=== PATIENT | female | born 1945 | race Caucasian/White ===

== ENCOUNTER 2016-08-08 08:44 | Outpatient (CLI) | payer MEDICARE, OTHER | END 2016-08-08 08:45 | disposition home or self-care (01) | DX: E78.5 Hyperlipidemia, unspecified (principal); E55.9 Vitamin D deficiency, unspecified; Z79.899 Other long term (current) drug therapy; I10 Essential (primary) hypertension ==

== ENCOUNTER 2017-05-13 13:03 | Outpatient (CLI) | payer MEDICARE, OTHER ==
--- NOTE | 2017-05-13 17:05 | MRI Report ---
EXAM: RIGHT KNEE MRI WITHOUT CONTRAST EXAM DATE: 05/13/2017 01:44 PM. CLINICAL HISTORY: Right knee injury 8 months ago. History of breast cancer. Suspect medial meniscal t ear. COMPARISON: None. TECHNIQUE: Multiplanar, multisequence T1-weighted and fluid-sensitive sequences of the knee without c ontrast. Other: None. FINDINGS: Bones: Tiny marginal osteophytes at the tibial plateau. No acute fracture or bone lesions. Articular Cartilage: Grade 2 chondromalacia at the medial compartment. Medial Meniscus: Horizontal tear at the medial meniscal body (coronal image 17). Lateral Meniscus: Radial tear at the free edge of the lateral meniscal body Cruciate Ligaments: The anterior and posterior cruciate ligaments are intact. Collateral Ligaments: The medial collateral and lateral collateral ligamentous structures are intact. Tendons: The quadriceps, patellar, semimembranosus, and popliteus tendons are unremarkable. Musculature: No edema or fatty atrophy. Other: No effusion. There is a moderate-sized, approximately 7.8 x 2.2 x 1.2 cm lobular and multisept ated popliteal cyst. No loose bodies. The medial and lateral retinacula are intact. The subcutaneous tissues and fat pads are unremarkable. IMPRESSION: 1. 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 2. Focal horizontal tear at the medial meniscal body. 3. Radial tear at the free edge of the lateral meniscal body. 4. Moderate-sized lobular and multiseptated popliteal cyst. [facility] MUSCULOSKELETAL RADIOLOGY SECTION Referring Provider Line: [phone] SITE ID: [id number]
== END 2017-05-13 13:04 | disposition home or self-care (01) ==
LOC: DI 13:03
PROVIDERS: ATTEND Physician Assistant Medical
DX: S83.241A Other tear of medial meniscus, current injury, right knee, initial encounter (principal); M94.261 Chondromalacia, right knee; S83.281A Other tear of lateral meniscus, current injury, right knee, initial encounter; M71.21 Synovial cyst of popliteal space [Baker], right knee

== ENCOUNTER 2017-09-03 11:05 | Outpatient (CLI) | payer MEDICARE, BC ==
[2017-09-03 17:26] LABS: BASOPHILS % (AUTO) 0.4 %; EOSINOPHILS # (AUTO) 0.1 10^3/uL (0.0-0.7); EOSINOPHILS % (AUTO) 1.5 %; HGB - HEMOGLOBIN 14.4 g/dL (12.0-16.0); LYMPHOCYTES # (AUTO) 2.1 10^3/uL (1.5-3.5); LYMPHOCYTES % (AUTO) 31.8 %; MEAN CORPUSCULAR HEMOGLOBIN 29.1 pg (27.0-31.0); MEAN CORPUSCULAR HGB CONC 31.9 g/dL (32.0-36.0); MEAN CORPUSCULAR VOLUME 91.2 fL (81.0-99.0); MEAN PLATELET VOLUME 8.6 fL (7.9-10.8); MONOCYTES # (AUTO) 0.4 10^3/uL (0.0-1.0); MONOCYTES % (AUTO) 6.1 %; NEUTROPHILS % (AUTO) 60.2 %; PLT - PLATELET COUNT 255 10^3/uL (130-450); RED BLOOD COUNT 4.94 10^6/uL (4.20-5.40); RED CELL DISTRIBUTION WIDTH 13.5 % (12.0-15.0); WHITE BLOOD COUNT 6.6 x10^3/uL (4.8-10.8)
[2017-09-03 17:37] LABS: ALBUMIN 3.9 g/dL (3.2-5.5); ALBUMIN/GLOBULIN RATIO 1.3 (1.0-2.2); ALKALINE PHOSPHATASE 35 IU/L (42-121); ALT ALANINE AMINOTRANSFERASE 30 IU/L (10-60); AST ASPARTATE AMINOTRANSFERASE 30 IU/L (10-42); BILIRUBIN,TOTAL 0.7 mg/dL (0.2-1.0); BUN - BLOOD UREA NITROGEN 15 mg/dL (6-20); CALCIUM 9.4 mg/dL (8.5-10.3); CARBON DIOXIDE - CO2 29 mmol/L (21-32); CHLORIDE 100 mmol/L (101-111); CHOL/HDL RATIO 2.9 (<4.4); CHOLESTEROL 152 mg/dL; CREATININE 0.7 mg/dL (0.4-1.0); GFR - MDRD 82 (>89); GLUCOSE 88 mg/dL (70-100); HDL CHOLESTEROL 52 mg/dL; LDL CHOLESTEROL,CALCULATED 82 mg/dL; LDL/HDL RATIO 1.6 (<4.4); SODIUM 136 mmol/L (135-145); TOTAL PROTEIN 6.9 g/dL (6.7-8.2); VLDL CHOLESTEROL 18 mg/dL
== END 2017-09-03 11:06 | disposition home or self-care (01) ==
LOC: LAB.F 11:05
PROVIDERS: ATTEND Physician Assistant Medical
DX: I10 Essential (primary) hypertension (principal); E55.9 Vitamin D deficiency, unspecified; E78.5 Hyperlipidemia, unspecified
CPT/HCPCS: 36415; 80053; 80061; 82306; 83721; 85025

== ENCOUNTER 2018-02-13 15:23 | Outpatient (CLI) | payer MEDICARE, BC ==
[2018-02-13 17:43] LABS: BASOPHILS % (AUTO) 0.3 %; EOSINOPHILS # (AUTO) 0.1 10^3/uL (0.0-0.7); EOSINOPHILS % (AUTO) 0.8 %; HGB - HEMOGLOBIN 14.1 g/dL (12.0-16.0); LYMPHOCYTES # (AUTO) 2.7 10^3/uL (1.5-3.5); LYMPHOCYTES % (AUTO) 29.8 %; MEAN CORPUSCULAR HEMOGLOBIN 30.9 pg (27.0-31.0); MEAN CORPUSCULAR HGB CONC 33.9 g/dL (32.0-36.0); MEAN CORPUSCULAR VOLUME 91.1 fL (81.0-99.0); MEAN PLATELET VOLUME 8.8 fL (7.9-10.8); MONOCYTES # (AUTO) 0.7 10^3/uL (0.0-1.0); MONOCYTES % (AUTO) 7.2 %; NEUTROPHILS # (AUTO) 5.6 10^3/uL (1.5-6.6); NEUTROPHILS % (AUTO) 61.9 %; PLT - PLATELET COUNT 220 10^3/uL (130-450); RED BLOOD COUNT 4.58 10^6/uL (4.20-5.40); RED CELL DISTRIBUTION WIDTH 13.2 % (12.0-15.0); WHITE BLOOD COUNT 9.1 x10^3/uL (4.8-10.8)
== END 2018-02-13 15:24 | disposition home or self-care (01) ==
LOC: LAB.F 15:23
PROVIDERS: ATTEND Physician Assistant Medical
DX: I10 Essential (primary) hypertension (principal); R53.83 Other fatigue
CPT/HCPCS: 36415; 84443; 85025

== ENCOUNTER 2018-08-04 11:45 | Outpatient (CLI) | payer MEDICARE, BC ==
[2018-08-04 20:17] LABS: URIC ACID 4.8 mg/dL (2.6-7.2)
[2018-08-04 20:38] LABS: CRP - C-REACTIVE PROTEIN < 1.0 mg/dL (0-1.0)
[2018-08-04 21:45] LABS: RHEUMATOID FACTOR NEGATIVE (Negative)
== END 2018-08-04 11:46 | disposition home or self-care (01) ==
LOC: LAB.F 11:45
PROVIDERS: ATTEND Physician Assistant Medical
DX: M25.50 Pain in unspecified joint (principal)
CPT/HCPCS: 36415; 84550; 85651; 86038; 86140; 86200; 86430

== ENCOUNTER 2019-04-12 10:02 | Outpatient (CLI) | payer MEDICARE, BC | END 2019-04-12 10:03 | disposition critical access hospital (66) | LOC: EMS 10:02 | PROVIDERS: ATTEND Surgery | DX: R10.9 Unspecified abdominal pain (principal); W01.190A Fall on same level from slipping, tripping and stumbling with subsequent striking against furniture, initial encounter | CPT/HCPCS: A0425; A0429 ==

== ENCOUNTER 2019-04-12 10:30 | Emergency (ER) | payer MEDICARE, BC ==
--- NOTE | 2019-04-12 11:38 | XRAY Report ---
Reason: fall/rib pain Procedure Date: 04/12/2019 Accession Number: [id number] / [id number] Procedure: XR - Ribs w/PA Chest RT CPT Code: Addended Final Report FULL RESULT: EXAM: RIGHT RIB RADIOGRAPHY EXAM DATE: 04/12/2019 10:57 AM. CLINICAL HISTORY: Fall/rib pain. COMPARISON: None. TECHNIQUE: 1 view of the chest and 2 views of the ribs. FINDINGS: Bones: Normal. No acute fracture or bone lesion. Lungs: No focal opacities. No pneumothorax. No pleural effusions. Mediastinum: Heart and mediastinal contours are unremarkable. Other: About 6.7 degrees of levoscoliosis from T2-T3 to T9-T10. IMPRESSION: 1. No evidence for rib fractures or other acute bony injuries. 2. Heart and lungs are clear. 3. Minimal levoscoliosis. [facility] ADDENDUM: 04/12/19 12:20 Examination shows a nondisplaced rib fracture at the lateral eighth rib. Best seen on the oblique images.
--- NOTE | 2019-04-12 11:42 | ED Physician Documentation ---
PD HPI Fall - Stated complaint Stated Complaint: FALL - Chief complaint Chief Complaint: Back Pain - History obtained from History obtained from: Patient - History of Present Illness Mechanism of injury: Slipped (On a piece of bubble wrap) Fall distance: Standing position Where injury occurred: Home Timing - onset: Yesterday Injury(ies) location: Chest Quality of pain: Pain Associated symptoms: No: LOC, Neck pain, Nausea / vomiting Worsens with: Movement Recently seen: Not recently seen - Additional information Additional information: This is a 73-year-old woman who presents by ambulance with complaints that you walking through her living room last night slipped on a piece of bubble wrap and fell impacting onto the couch on her right chest. She took some Aleve last night but the pain is getting worse. She feels short of breath. She has not noticed any bruising. She has not seen blood in the urine. She felt a little dizzy but has not passed out. Had no vomiting. No abdominal pain. Review of Systems Cardiac: reports: Chest pain / pressure Respiratory: reports: Dyspnea : denies: Hematuria PD PAST MEDICAL HISTORY - Present Medications Home Medications: Ambulatory Orders Medication Instructions Recorded Confirmed Hydrocodone/Acetaminophen 1 - 2 each PO Q6H PRN #14 tablet 04/12/19 [Hydrocodon-Acetaminophen 5-325] - Allergies Allergies/Adverse Reactions: Allergies Allergy/AdvReac Type Severity Reaction Status Date / Time No Known Drug Allergies Allergy Verified 04/12/19 10:37 - Social History Does the pt smoke?: No Smoking Status: Never smoker PD ED PE NORMAL - Vitals Vital signs reviewed: Yes - General General: Alert and oriented X 3, No acute distress, Well developed/nourished - HEENT HEENT: Atraumatic, Moist mucous membranes - Cardiac Cardiac: RRR, Strong equal pulses - Respiratory Respiratory: No respiratory distress, Clear bilaterally, Other (There was a palpable and audible crunching when the patient took a deep breath. No crepitance or crepitus.) - Abdomen Abdomen: Normal bowel sounds, Soft, Non tender, Non distended, No organomegaly - Derm Derm: Normal color, Warm and dry, Other (No bruising noted.) - Extremities Extremities: No deformity - Neuro Neuro: Alert and oriented X 3, No motor deficit, No sensory deficit, Normal speech - Psych Psych: Normal mood, Normal affect Results - Vitals Vitals: Vital Signs - 24 hr 04/12/19 10:34 Temperature 36.4 C L Heart Rate 64 Respiratory 18 Rate Blood Pressure 142/100 H O2 Saturation 100 Oxygen O2 Source Room air - Rads (name of study) Rib Radiology: EMP read contemporaneously (Fracture rib 8) PD MEDICAL DECISION MAKING - ED course Complexity details: reviewed results, d/w patient ED course: Patient was given hydrocodone tablet. Results the x-ray were discussed with her. No evidence of pneumothorax. There was no gross hematuria. Patient will be given a prescription for hydrocodone. We talked about rib precautions and splinting to help alleviate the pain. I did also recommend taking Aleve twice a day and using the hydrocodone only if needed. Follow-up with her primary care provider if needed for further pain management. Return if any signs of pneumonia to include shortness of breath, fever, increasing pain. Departure - Departure Disposition: 01 Home, Self Care Clinical Impression: Rib fracture Qualifiers: Encounter type: initial encounter Rib fracture type: single rib Fracture type: closed Laterality: right Qualified Code(s): S22.31XA - Fracture of one rib, right side, initial encounter for closed fracture Condition: Good Instructions: ED Fx Rib Follow-Up: Jannette Diaz PA-C [Primary Care Provider] - Prescriptions: Hydrocodone/Acetaminophen [Hydrocodon-Acetaminophen 5-325] 1 - 2 each PO Q6H PRN #14 tablet PRN Reason: pain Comments: Take Aleve twice a day. Trial just a half a tablet of hydrocodone if needed for pain. He can always take an additional half if there is no improvement in 30 minutes. Splint the chest if you have to move abruptly cough or laugh or sneeze. Make sure that you are taking and good deep breaths to avoid development of pneumonia. Follow-up if you have increasing pain, fever, productive cough or shortness of breath. See your doctor for further pain management if needed.
[2019-04-12] MEDS ORDERED: HYDROcod/ACETAM 5/325 MG TABLET PO STA (11:43)
[2019-04-12 12:53] VITALS: BP 122/85
[2019-04-12 12:56] LABS: BILIRUBIN,URINE NEGATIVE (NEGATIVE); GLUCOSE, URINE (UA) NEGATIVE (NEGATIVE); KETONES,URINE (UA) NEGATIVE (NEGATIVE); LEUKOCYTE ESTERASE, URINE NEGATIVE (NEGATIVE); NITRITE,URINE NEGATIVE (NEGATIVE); OCCULT BLOOD,URINE NEGATIVE (NEGATIVE); PH,URINE 7.5 PH (5.0-7.5); PROTEIN,URINE NEGATIVE (NEGATIVE); UROBILINOGEN,URINE 0.2 (NORMAL) E.U./dL (NORMAL)
[2019-04-12 12:57] LABS: CLARITY,URINE CLEAR (CLEAR)
== END 2019-04-12 13:06 | disposition home or self-care (01) ==
LOC: EDUNIT# → ED 10:30
DX: S22.31XA Fracture of one rib, right side, initial encounter for closed fracture (principal); W01.190A Fall on same level from slipping, tripping and stumbling with subsequent striking against furniture, initial encounter; Y93.01 Activity, walking, marching and hiking; Y92.008 Other place in unspecified non-institutional (private) residence as the place of occurrence of the external cause
CPT/HCPCS: 71101; 81003; 99283; 99284; A9270; 81001; 87086

== ENCOUNTER 2019-06-12 08:00 | Outpatient (CLI) | payer MEDICARE, BC | END 2019-06-12 23:59 | disposition home or self-care (01) | LOC: LAB.R 08:00 | PROVIDERS: ATTEND Family Medicine | DX: R39.15 Urgency of urination (principal) | CPT/HCPCS: 87077; 87086; 87181 ==

== ENCOUNTER 2019-07-02 12:28 | Outpatient (CLI) | payer MEDICARE, BC ==
--- NOTE | 2019-07-03 03:53 | XRAY Report ---
Reason: FRACTURE OF ONE RIB RIGHT SIDE Procedure Date: 07/02/2019 Accession Number: [id number] / [id number] Procedure: XRS - Ribs w/PA Chest RT CPT Code: Final Report FULL RESULT: EXAM: RIGHT RIB RADIOGRAPHY EXAM DATE: 07/02/2019 01:30 PM. CLINICAL HISTORY: FRACTURE OF ONE RIB RIGHT SIDE. COMPARISON: RIBS W/PA CHEST RT 04/12/2019 10:51 AM. TECHNIQUE: 1 view of the chest and 2 views of the ribs. FINDINGS: Bones: Healed right ninth rib fracture. No interval fracture appreciated. Lungs: No focal opacities. No pneumothorax. No pleural effusions. Mediastinum: Heart and mediastinal contours are unremarkable. Other: None. IMPRESSION: Healed right ninth rib fracture. No interval fracture appreciated. [facility]
== END 2019-07-02 12:29 | disposition home or self-care (01) ==
LOC: DI.S 12:28
PROVIDERS: ATTEND Physician Assistant Medical
DX: S22.31XD Fracture of one rib, right side, subsequent encounter for fracture with routine healing (principal)

== ENCOUNTER 2020-03-28 10:24 | Outpatient (CLI) | payer MEDICARE, BC ==
[2020-03-28 15:39] LABS: BASOPHILS % (AUTO) 0.5 %; EOSINOPHILS # (AUTO) 0.1 10^3/uL (0.0-0.7); EOSINOPHILS % (AUTO) 1.7 %; HGB - HEMOGLOBIN 13.5 g/dL (12.0-16.0); LYMPHOCYTES # (AUTO) 2.1 10^3/uL (1.5-3.5); LYMPHOCYTES % (AUTO) 26.5 %; MEAN CORPUSCULAR HGB CONC 31.8 g/dL (32.0-36.0); MEAN CORPUSCULAR VOLUME 94.2 fL (81.0-99.0); MEAN PLATELET VOLUME 10.4 fL (7.9-10.8); MONOCYTES # (AUTO) 0.7 10^3/uL (0.0-1.0); MONOCYTES % (AUTO) 8.8 %; NEUTROPHILS % (AUTO) 62.3 %; PLT - PLATELET COUNT 217 10^3/uL (130-450)
[2020-03-28 16:52] LABS: ALBUMIN 3.7 g/dL (3.2-5.5); ALBUMIN/GLOBULIN RATIO 1.3 (1.0-2.2); ALKALINE PHOSPHATASE 39 IU/L (42-121); ALT ALANINE AMINOTRANSFERASE 38 IU/L (10-60); AST ASPARTATE AMINOTRANSFERASE 40 IU/L (10-42); BILIRUBIN,TOTAL 0.7 mg/dL (0.2-1.0); BUN - BLOOD UREA NITROGEN 25 mg/dL (6-20); CARBON DIOXIDE - CO2 28 mmol/L (21-32); CHLORIDE 103 mmol/L (101-111); CHOL/HDL RATIO 2.7 (<4.4); CHOLESTEROL 134 mg/dL; CREATININE 1.1 mg/dL (0.4-1.0); GLUCOSE 94 mg/dL (70-100); HDL CHOLESTEROL 50 mg/dL; LDL CHOLESTEROL,CALCULATED 67 mg/dL; LDL/HDL RATIO 1.3 (<4.4); SODIUM 139 mmol/L (135-145); TOTAL PROTEIN 6.6 g/dL (6.7-8.2); VLDL CHOLESTEROL 17 mg/dL
== END 2020-03-28 10:25 | disposition home or self-care (01) ==
LOC: LAB.S 10:24
PROVIDERS: ATTEND Registered Nurse
DX: F33.1 Major depressive disorder, recurrent, moderate (principal); I10 Essential (primary) hypertension; M81.0 Age-related osteoporosis without current pathological fracture; E78.5 Hyperlipidemia, unspecified; K21.9 Gastro-esophageal reflux disease without esophagitis; R39.15 Urgency of urination
CPT/HCPCS: 36415; 80053; 80061; 83721; 84443; 85025

== ENCOUNTER 2020-06-20 08:00 | Outpatient (CLI) | payer MEDICARE, BC ==
[2020-06-20 21:47] LABS: CANDIDA GROUP DNA NEGATIVE (NEGATIVE); CANDIDA KRUSEI DNA NEGATIVE (NEGATIVE); TRICHOMONAS VAGINALIS DNA NEGATIVE (NEGATIVE)
== END 2020-06-20 23:59 | disposition home or self-care (01) ==
LOC: LAB.S 08:00
PROVIDERS: ATTEND Physician Assistant Medical
DX: N76.0 Acute vaginitis (principal); R30.0 Dysuria
CPT/HCPCS: 87086; 87661; 87801

== ENCOUNTER 2020-09-29 17:53 | Outpatient (CLI) | payer MEDICARE, BC ==
--- NOTE | 2020-09-29 18:16 | XRAY Report ---
PROCEDURE: Wrist 3 View RT INDICATIONS: RIGHT WRIST PAIN TECHNIQUE: 3 views of the wrist were acquired. COMPARISON: None. FINDINGS: Bones: There is generalized osteopenia. No acute fracture or dislocation is seen. Severe degenerative changes are seen at the triscaphe joint with full-thickness joint space narrowing and subchondral sc lerosis and marginal osteophyte formation. Soft tissues: Chondrocalcinosis is noted at the ulnar aspect of the wrist. IMPRESSION: 1. No acute osseous abnormality. 2. Severe triscaphe joint osteoarthrosis. 3. Generalized osteopenia. 4. Chondrocalcinosis. If there is clinical concern or persistent symptoms, additional imaging such as repeat radiographs or advanced imaging (e.g. CT, MRI) may be helpful for further evaluation. Reviewed by: Venkatesh Doan MD on 09/29/2020 6:15 PM PDT Approved by: Venkatesh Doan MD on 09/29/2020 6:15 PM PDT Station ID: [id number]
--- NOTE | 2020-09-30 08:27 | XRAY Report ---
PROCEDURE: Lumbar Spine 2 View INDICATIONS: LUMBAR PAIN TECHNIQUE: 2 views of the lumbar spine were acquired. COMPARISON: None. FINDINGS: No fracture. Multilevel spondylytic/degenerative endplate changes. Diffuse facet arthropathy. Mild de xtroscoliosis. Severe narrowing of the L3-L4 and mild narrowing of the L4-L5 and L5-S1 disc spaces. Soft tissues: Overlying bowel gas pattern is normal. No suspicious soft tissue calcifications. IMPRESSION: Multifocal lower lumbar spondylosis and diffuse facet arthropathy. Dextroscoliosis. Reviewed by: Oracio Chakraborty MD on 09/30/2020 8:26 AM PDT Approved by: Oracio Chakraborty MD on 09/30/2020 8:26 AM PDT Station ID: [id number]
== END 2020-09-29 23:59 | disposition home or self-care (01) ==
LOC: DI.S 17:53
PROVIDERS: ATTEND Physician Assistant Medical
DX: M25.531 Pain in right wrist (principal); M19.031 Primary osteoarthritis, right wrist; M11.231 Other chondrocalcinosis, right wrist; M85.89 Other specified disorders of bone density and structure, multiple sites; M47.26 Other spondylosis with radiculopathy, lumbar region; M41.86 Other forms of scoliosis, lumbar region

== ENCOUNTER 2021-02-27 18:04 | Outpatient (CLI) | payer MEDICARE, BC ==
[2021-02-27 19:52] LABS: BASOPHILS % (AUTO) 0.4 %; EOSINOPHILS # (AUTO) 0.1 10^3/uL (0.0-0.7); EOSINOPHILS % (AUTO) 1.2 %; HCT - HEMATOCRIT 41.2 % (37.0-47.0); HGB - HEMOGLOBIN 13.2 g/dL (12.0-16.0); LYMPHOCYTES # (AUTO) 2.5 10^3/uL (1.5-3.5); LYMPHOCYTES % (AUTO) 32.1 %; MEAN CORPUSCULAR HEMOGLOBIN 30.3 pg (27.0-31.0); MEAN CORPUSCULAR VOLUME 94.5 fL (81.0-99.0); MEAN PLATELET VOLUME 10.6 fL (7.9-10.8); MONOCYTES # (AUTO) 0.6 10^3/uL (0.0-1.0); MONOCYTES % (AUTO) 7.7 %; NEUTROPHILS # (AUTO) 4.5 10^3/uL (1.5-6.6); NEUTROPHILS % (AUTO) 58.3 %; PLT - PLATELET COUNT 230 10^3/uL (130-450); RED BLOOD COUNT 4.36 10^6/uL (4.20-5.40); RED CELL DISTRIBUTION WIDTH 12.4 % (12.0-15.0); WHITE BLOOD COUNT 7.8 x10^3/uL (4.8-10.8)
[2021-02-27 20:04] LABS: CALCIUM 9.8 mg/dL (8.5-10.3); CREATININE 0.8 mg/dL (0.4-1.0); MAGNESIUM 2.3 mg/dL (1.7-2.8); POTASSIUM 3.8 mmol/L (3.5-5.0)
== END 2021-02-27 23:59 | disposition home or self-care (01) ==
LOC: LAB.S 18:04
PROVIDERS: ATTEND Emergency Medicine
DX: R25.2 Cramp and spasm (principal); I10 Essential (primary) hypertension
CPT/HCPCS: 36415; 80048; 83735; 85025

== ENCOUNTER 2021-06-26 09:48 | Outpatient (CLI) | payer MEDICARE, BC ==
[2021-06-26 15:21] LABS: CHOL/HDL RATIO 2.6 (<4.4); CHOLESTEROL 139 mg/dL; HDL CHOLESTEROL 53 mg/dL; LDL CHOLESTEROL,CALCULATED 66 mg/dL; LDL/HDL RATIO 1.2 (<4.4); TRIGLYCERIDES 98 mg/dL; VLDL CHOLESTEROL 20 mg/dL
[2021-06-26 15:26] LABS: THYROID STIMULATING HORMONE 1.6 uIU/mL (0.34-5.60)
== END 2021-06-26 09:49 | disposition home or self-care (01) ==
LOC: LAB.S 09:48
PROVIDERS: ATTEND Registered Nurse
DX: E78.5 Hyperlipidemia, unspecified (principal)
CPT/HCPCS: 36415; 80061; 83721; 84443

== ENCOUNTER 2021-10-17 17:42 | Emergency (ER) | payer MEDICARE, BC ==
--- OUTSIDE RECORDS SUMMARY | 2021-10-17 17:54 | EXTERNAL MEDICAL SUMMARY RPT | Continuity of Care Document ---
:1945 Author Organization [facility] Address [address] [place] [address] Phone Care Team Providers Name Role Phone Sara Unavailable Unavailable Allergies No information. Encounters No information. Medications No information. Problems date description facility 20211004 Total score? 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 Vital Signs date measurement value source 20211004 weight_standard 125 lb 20211004 weight_metric 56.7 kg 20211004 temperature_standard 97.9 F 20211004 temperature_metric 36.61 C 20211004 respiration_rate 16 /min 20211004 height_standard 59.5 in 20211004 height_metric 151.13 cm 20211004 heart_rate 71 /min 20211004 BP_systolic 112 mm[Hg] 20211004 BP_diastolic 69 mm[Hg] 20211004 BMI 24.91 kg/m2
[2021-10-17 18:18] LABS: BASOPHILS % (AUTO) 0.3 %; EOSINOPHILS # (AUTO) 0.2 10^3/uL (0.0-0.7); EOSINOPHILS % (AUTO) 1.5 %; LYMPHOCYTES # (AUTO) 3.5 10^3/uL (1.5-3.5); LYMPHOCYTES % (AUTO) 33.7 %; MEAN CORPUSCULAR HEMOGLOBIN 30.8 pg (27.0-31.0); MEAN CORPUSCULAR HGB CONC 34.1 g/dL (32.0-36.0); MEAN CORPUSCULAR VOLUME 90.1 fL (81.0-99.0); MEAN PLATELET VOLUME 9.1 fL (7.9-10.8); MONOCYTES # (AUTO) 0.9 10^3/uL (0.0-1.0); MONOCYTES % (AUTO) 8.6 %; NEUTROPHILS # (AUTO) 5.8 10^3/uL (1.5-6.6); NEUTROPHILS % (AUTO) 55.6 %; PLT - PLATELET COUNT 259 10^3/uL (130-450); RED BLOOD COUNT 4.55 10^6/uL (4.20-5.40); RED CELL DISTRIBUTION WIDTH 12.4 % (12.0-15.0); WHITE BLOOD COUNT 10.5 x10^3/uL (4.8-10.8)
[2021-10-17 18:32] LABS: ACETAMINOPHEN < 10 ug/mL (10-30); ALBUMIN 4.2 g/dL (3.2-5.5); ALBUMIN/GLOBULIN RATIO 1.4 (1.0-2.2); ALKALINE PHOSPHATASE 35 IU/L (42-121); ALT ALANINE AMINOTRANSFERASE 42 IU/L (10-60); AST ASPARTATE AMINOTRANSFERASE 38 IU/L (10-42); BILIRUBIN,TOTAL 0.6 mg/dL (0.2-1.0); BUN - BLOOD UREA NITROGEN 11 mg/dL (6-20); CALCIUM 10.3 mg/dL (8.5-10.3); CARBON DIOXIDE - CO2 25 mmol/L (21-32); CHLORIDE 95 mmol/L (101-111); CREATININE 0.7 mg/dL (0.4-1.0); ETOH - ETHANOL < 5.0 mg/dL; GFR - MDRD 82 (>89); GLUCOSE 89 mg/dL (70-100); LIPASE 72 U/L (22-51); SALICYLATE < 6.0 mg/dL; SODIUM 130 mmol/L (135-145); TOTAL PROTEIN 7.1 g/dL (6.7-8.2)
--- NOTE | 2021-10-17 18:33 | ED Physician Documentation ---
PD HPI MHE - Stated complaint Stated Complaint: MHE - Chief complaint Chief Complaint: MHE - History obtained from History obtained from: Patient - Additional information Additional information: 76-year-old woman with history of breast cancer in remission presents for evaluation of suicidal ideation with plan to overdose. Recent change from Lexapro to Prozac with increasing doses but no help. Has been thinking about overdosing on her psych meds. No previous psychiatric hospitalizations. Review of Systems Ten Systems: 10 systems reviewed and negative Constitutional: reports: Reviewed and negative Eyes: reports: Reviewed and negative Nose: reports: Reviewed and negative Throat: reports: Reviewed and negative Cardiac: reports: Reviewed and negative GI: reports: Diarrhea (A few loose stools today) PD PAST MEDICAL HISTORY - Present Medications Home Medications: Ambulatory Orders Medication Instructions Recorded Confirmed Atorvastatin [Lipitor] 10 mg PO DAILY 10/17/21 10/17/21 Esomeprazole Magnesium 20 mg PO HS 10/17/21 10/17/21 Fluoxetine HCl [Prozac] 20 mg PO DAILY 10/17/21 10/17/21 Losartan/Hydrochlorothiazide 1 tab PO DAILY 10/17/21 10/17/21 [Hyzaar 50-12.5 Tablet] Meloxicam, Submicronized 7.5 mg PO DAILY 10/17/21 10/17/21 [Meloxicam] Tamoxifen Citrate 20 mg PO DAILY 10/17/21 10/17/21 - Allergies Allergies/Adverse Reactions: Allergies Allergy/AdvReac Type Severity Reaction Status Date / Time No Known Drug Allergies Allergy Verified 10/17/21 17:54 - Social History Does the pt smoke?: No Smoking Status: Never smoker PD ED PE NORMAL - Vitals Vital signs reviewed: Yes - General General: Alert and oriented X 3, No acute distress - HEENT HEENT: PERRL, EOMI - Neck Neck: Supple, no meningeal sign, No bony TTP - Cardiac Cardiac: RRR, No murmur - Respiratory Respiratory: No respiratory distress, Clear bilaterally - Abdomen Abdomen: Normal bowel sounds, Soft, Non tender - Back Back: No CVA TTP, No spinal TTP - Derm Derm: Normal color, Warm and dry - Extremities Extremities: No edema, No calf tenderness / cord - Neuro Neuro: Alert and oriented X 3, Normal speech - Psych Psych: Normal affect, Other (Tearful) Results - Vitals Vitals: Vital Signs - 24 hr 10/17/21 10/17/21 10/17/21 17:46 19:27 20:36 Temperature 36.4 C L Heart Rate 63 Respiratory 16 17 15 Rate Blood Pressure 136/95 H O2 Saturation 100 10/17/21 10/17/21 10/17/21 21:45 21:57 22:37 Temperature 36.5 C Heart Rate Respiratory 15 16 16 Rate Blood Pressure O2 Saturation 10/17/21 10/18/21 10/18/21 23:25 00:23 03:33 Temperature Heart Rate 57 L Respiratory 16 15 17 Rate Blood Pressure 143/67 H O2 Saturation 100 10/18/21 10/18/21 03:34 06:02 Temperature 36.4 C L Heart Rate Respiratory 12 Rate Blood Pressure O2 Saturation Oxygen O2 Source Room air - EKG (time done) 1826 Rate: Rate (enter#) (61) Rhythm: NSR [place]: Normal Intervals: Normal AL QRS: LVH Ischemia: Normal ST segments - Labs Labs: Microbiology 10/17/21 18:05 Urine Culture - Preliminary Urine,Clean Catch CULTURE IN PROGRESS. RESULTS TO FOLLOW. Laboratory Tests 10/17/21 10/17/21 10/17/21 18:05 18:11 18:11 WBC 10.5 RBC 4.55 Hgb 14.0 Hct 41.0 MCV 90.1 MCH 30.8 MCHC 34.1 RDW 12.4 Plt Count 259 MPV 9.1 Neut # (Auto) 5.8 Lymph # (Auto) 3.5 [place] # (Auto) 0.9 Eos # (Auto) 0.2 Baso # (Auto) 0.0 Absolute Nucleated RBC 0.00 Nucleated RBC % 0.0 Sodium 130 L Potassium 3.0 L Chloride 95 L Carbon Dioxide 25 Anion Gap 10.0 BUN 11 Creatinine 0.7 Estimated GFR (MDRD) 82 L Glucose 89 Calcium 10.3 Total Bilirubin 0.6 AST 38 ALT 42 Alkaline Phosphatase 35 L Total Protein 7.1 Albumin 4.2 Globulin 2.9 Albumin/Globulin Ratio 1.4 Lipase 72 H TSH Urine Color YELLOW Urine Clarity CLEAR Urine pH 7.5 Ur Specific Seaman 1.010 Urine Protein NEGATIVE Urine Glucose (UA) NEGATIVE Urine Ketones NEGATIVE Urine Occult Blood NEGATIVE Urine Nitrite NEGATIVE Urine Bilirubin NEGATIVE Urine Urobilinogen 0.2 (NORMAL) Ur Leukocyte Esterase SMALL H Urine RBC 0-5 Urine WBC 4-5 Ur Squamous Epith Cells FEW Squamous Urine Bacteria Few Ur Microscopic Review INDICATED Urine Culture Comments INDICATED Salicylates < 6.0 Urine Opiates Screen NEGATIVE Ur Oxycodone Screen NEGATIVE Urine Methadone Screen NEGATIVE Ur Propoxyphene Screen NEGATIVE Acetaminophen < 10 L Ur Barbiturates Screen NEGATIVE Ur Tricyclics Screen NEGATIVE Ur Phencyclidine Scrn NEGATIVE Ur Amphetamine Screen NEGATIVE U Methamphetamines Scrn NEGATIVE U Benzodiazepines Scrn POSITIVE H Urine Cocaine Screen NEGATIVE U Cannabinoids Screen NEGATIVE Ethyl Alcohol < 5.0 SARS-CoV-2 (PCR) 10/17/21 10/17/21 18:11 19:28 WBC RBC Hgb Hct MCV MCH MCHC RDW Plt Count MPV Neut # (Auto) Lymph # (Auto) [place] # (Auto) Eos # (Auto) Baso # (Auto) Absolute Nucleated RBC Nucleated RBC % Sodium Potassium Chloride Carbon Dioxide Anion Gap BUN Creatinine Estimated GFR (MDRD) Glucose Calcium Total Bilirubin AST ALT Alkaline Phosphatase Total Protein Albumin Globulin Albumin/Globulin Ratio Lipase TSH 2.94 Urine Color Urine Clarity Urine pH Ur Specific Seaman Urine Protein Urine Glucose (UA) Urine Ketones Urine Occult Blood Urine Nitrite Urine Bilirubin Urine Urobilinogen Ur Leukocyte Esterase Urine RBC Urine WBC Ur Squamous Epith Cells Urine Bacteria Ur Microscopic Review Urine Culture Comments Salicylates Urine Opiates Screen Ur Oxycodone Screen Urine Methadone Screen Ur Propoxyphene Screen Acetaminophen Ur Barbiturates Screen Ur Tricyclics Screen Ur Phencyclidine Scrn Ur Amphetamine Screen U Methamphetamines Scrn U Benzodiazepines Scrn Urine Cocaine Screen U Cannabinoids Screen Ethyl Alcohol SARS-CoV-2 (PCR) NOT DETECTED PD MEDICAL DECISION MAKING - ED course ED course: 76-year-old woman presents with suicidal ideation and plan, but voluntary. She is hypokalemic and this is repleted orally. Plan to board her in the emergency department pending social work evaluation in the morning. Update October 18, 2021 at 12:18 PM. Patient no longer suicidal and feeling much better than yesterday. Seen by the social work and a safety plan was formulated. Departure - Departure Disposition: 01 Home, Self Care Clinical Impression: Suicidal ideation Depression Qualifiers: Depression Type: major depressive disorder Major depression recurrence: recurrent Active/Remission status: currently active Major depression episode severity: severe Psychotic features: without psychotic features Qualified Code(s): F33.2 - Major depressive disorder, recurrent severe without psychotic features Condition: Good Record reviewed to determine appropriate education?: Yes Instructions: ED Depression Comments: Follow the instructions of the social work supervisor, follow-up with your doctor tomorrow. Return for new or worsening symptoms. Or if you feel unsafe.
[2021-10-17 18:40] LABS: MUDS CUTOFF CONCENTRATIONS CUTOFF CONC BELOW:
[2021-10-17 18:42] LABS: BILIRUBIN,URINE NEGATIVE (NEGATIVE); GLUCOSE, URINE (UA) NEGATIVE (NEGATIVE); KETONES,URINE (UA) NEGATIVE (NEGATIVE); LEUKOCYTE ESTERASE, URINE SMALL (NEGATIVE); NITRITE,URINE NEGATIVE (NEGATIVE); OCCULT BLOOD,URINE NEGATIVE (NEGATIVE); PH,URINE 7.5 PH (5.0-7.5); PROTEIN,URINE NEGATIVE (NEGATIVE); UROBILINOGEN,URINE 0.2 (NORMAL) E.U./dL (NORMAL)
[2021-10-17 18:48] LABS: CLARITY,URINE CLEAR (CLEAR)
[2021-10-17] MEDS ORDERED: LOPERAMIDE 2 MG CAPSULE PO STA (18:51)
[2021-10-17 19:16] LABS: AMPHETAMINE SCREEN,URINE NEGATIVE (NEGATIVE); BARBITURATE SCREEN,UR NEGATIVE (NEGATIVE); BENZODIAZEPINES SCREEN, URINE POSITIVE (NEGATIVE); COCAINE SCREEN URINE NEGATIVE (NEGATIVE); METHADONE SCREEN, URINE NEGATIVE (NEGATIVE); METHAMPHETAMINES SCREEN, URINE NEGATIVE (NEGATIVE); OPIATE SCREEN, URINE NEGATIVE (NEGATIVE); OXYCODONE SCREEN, URINE NEGATIVE (NEGATIVE); PROPOXYPHENE SCREEN, URINE NEGATIVE (NEGATIVE); THC CANNABINOID SCREEN, URINE NEGATIVE (NEGATIVE); TRICYCLIC ANTIDEPRESSANT,URINE NEGATIVE (NEGATIVE)
[2021-10-17 19:18] LABS: BACTERIA,URINE Few /HPF (None Seen); RBC,URINE 0-5 /HPF (0-5); SQUAMOUS EPITHELIAL CELL,UR FEW Squamous (<= Few)
[2021-10-17] MEDS ORDERED: LOPERAMIDE 2 MG CAPSULE PO ONE (19:30)
[2021-10-17] MEDS ORDERED: POTASSIUM CHLORIDE 20 MEQ TABLET PO STA (22:13)
[2021-10-18 12:25] VITALS: BP 115/71
== END 2021-10-18 12:25 | disposition home or self-care (01) ==
LOC: ED 17:42
DX: F33.2 Major depressive disorder, recurrent severe without psychotic features (principal); R45.851 Suicidal ideations; Z20.822 Contact with and (suspected) exposure to COVID-19
CPT/HCPCS: 36415; 80053; 80306; 80307; 81001; 83690; 84443; 85025; 87086; 87635; 93005; 99283; 99284; A9270; G0480; 80320; 80329; 81003

== ENCOUNTER 2021-10-23 14:59 | Outpatient (CLI) | payer MEDICARE, BC ==
[2021-10-23 20:07] LABS: ALBUMIN 3.5 g/dL (3.2-5.5); ALBUMIN/GLOBULIN RATIO 1.3 (1.0-2.2); BILIRUBIN,TOTAL 0.4 mg/dL (0.2-1.0); CALCIUM 9.7 mg/dL (8.5-10.3); CREATININE 0.7 mg/dL (0.4-1.0); POTASSIUM 3.8 mmol/L (3.5-5.0); TOTAL PROTEIN 6.1 g/dL (6.7-8.2)
== END 2021-10-23 15:00 | disposition home or self-care (01) ==
LOC: LAB.S 14:59
PROVIDERS: ATTEND Nurse Practitioner Family
DX: E87.6 Hypokalemia (principal)
CPT/HCPCS: 36415; 80053

== ENCOUNTER 2022-06-14 16:12 | Outpatient (CLI) | payer MEDICARE, BC ==
--- NOTE | 2022-06-14 20:07 | XRAY Report ---
PROCEDURE: Foot 3 View LT INDICATIONS: LEFT FOOT PAIN TECHNIQUE: 3 views of the foot were acquired. COMPARISON: None FINDINGS: Bones: No fractures or dislocations. No suspicious bony lesions. First metatarsophalangeal joint s pace and narrowing and small marginal osteophytes Soft tissues: No tibiotalar joint effusion. Achilles tendon appears normal. IMPRESSION: Mild first MTP osteoarthritis Reviewed by: Stalin Fields MD on 06/14/2022 7:06 PM AK Approved by: Stalin Fields MD on 06/14/2022 7:06 PM AK Station ID: [id number]
== END 2022-06-14 23:59 | disposition home or self-care (01) ==
LOC: DI.S 16:12
PROVIDERS: ATTEND Nurse Practitioner Family
DX: M19.072 Primary osteoarthritis, left ankle and foot (principal)

== ENCOUNTER 2023-02-08 11:12 | Outpatient (CLI) | payer MEDICARE, OTHER ==
--- NOTE | 2023-02-08 12:33 | CT Report ---
PROCEDURE: CT Brain without contrast INDICATIONS: VERTIGO TECHNIQUE: Helical axial CT of the brain was obtained without contrast and reformatted in multiple p lanes. Radiation dose reduction was achieved using automated exposure control or adjustment of mA and /or kV according to patient size. COMPARISON: None. FINDINGS: CSF spaces: Ventricles are appropriate in size and position. No hydrocephalus. Basal cisterns unre markable. Brain: No midline shift. No intracranial masses or hemorrhage. Weller-white matter interface is norm al. Moderate atrophy and multifocal white matter chronic ischemic change noted. Atherosclerotic vasc ular calcification noted in the cavernous segments of both internal carotid arteries. Skull and face: Calvarium and skull base are unremarkable without suspicious lesion. Sinuses: Visualized sinuses and mastoids are clear. IMPRESSION: Atrophy and chronic ischemic change without intracranial hemorrhage or mass effect Reviewed by: Stalin Fields MD on 02/08/2023 11:32 AM LINDA Approved by: Stalin Fields MD on 02/08/2023 11:32 AM AKVANESSA Station ID: [id number]
== END 2023-02-08 11:13 | disposition home or self-care (01) ==
LOC: DI 11:12
PROVIDERS: ATTEND Nurse Practitioner Family
DX: R42 Dizziness and giddiness (principal); G31.89 Other specified degenerative diseases of nervous system; I67.82 Cerebral ischemia

== ENCOUNTER 2023-02-15 08:00 | Outpatient (CLI) | payer MEDICARE, OTHER ==
--- NOTE | 2023-02-15 19:07 | XRAY Report ---
PROCEDURE: Knee 2 View BILAT INDICATIONS: RIGHT KNEE PAIN TECHNIQUE: 2 views of the knee was obtained. COMPARISON: None FINDINGS: Bones: No fractures or dislocations. No suspicious bony lesions. Moderate bilateral medial latera l compartmental joint space narrowing. Soft tissues: Small knee joint effusion. No suspicious soft tissue calcifications or masses. IMPRESSION: Moderate joint space and narrowing with small joint effusions, bilateral Reviewed by: Stalin iFelds MD on 02/15/2023 6:06 PM AKDT Approved by: Stalin Fields MD on 02/15/2023 6:06 PM AKDT Station ID: [id number]
== END 2023-02-15 23:59 | disposition home or self-care (01) ==
LOC: DI.S 08:00
PROVIDERS: ATTEND Internal Medicine
DX: M17.0 Bilateral primary osteoarthritis of knee (principal); M25.462 Effusion, left knee; M25.461 Effusion, right knee

== ENCOUNTER 2023-02-15 16:41 | Outpatient (CLI) | payer MEDICARE, OTHER ==
--- NOTE | 2023-02-15 18:46 | XRAY Report ---
PROCEDURE: Lumbar Spine 2 View INDICATIONS: LOW BACK PAIN TECHNIQUE: 3 view(s) of the lumbar spine were acquired. COMPARISON: None. FINDINGS: Bones: 5 [id number] vertebrae are present. There is normal bony alignment. No vertebral body compression fractures. No suspicious bony lesions. Convex right thoracolumbar scoliosis. Lower lumb ar spine disc space narrowing with hypertrophic facet joints Soft tissues: Overlying bowel gas pattern is normal. No suspicious soft tissue calcifications. Mod erate to fecal debris in the right colon IMPRESSION: Degenerative disc disease, arthropathy and thoracolumbar dextroscoliosis. Moderate fecal debris without obstruction Reviewed by: Stalin Fields MD on 02/15/2023 5:44 PM LINDA Approved by: Stalin Fields MD on 02/15/2023 5:44 PM LINDA Station ID: [id number]
== END 2023-02-15 16:42 | disposition home or self-care (01) ==
LOC: DI.S 16:41
PROVIDERS: ATTEND Physician Assistant
DX: M47.816 Spondylosis without myelopathy or radiculopathy, lumbar region (principal); M51.36 Other intervertebral disc degeneration, lumbar region

== ENCOUNTER 2023-03-23 08:00 | Outpatient (CLI) | payer MEDICARE, OTHER | END 2023-03-23 23:59 | disposition home or self-care (01) | LOC: LAB.S 08:00 | PROVIDERS: ATTEND Emergency Medicine | DX: Z20.822 Contact with and (suspected) exposure to COVID-19 (principal) ==

== ENCOUNTER 2023-05-01 10:23 | Outpatient (CLI) | payer MEDICARE, OTHER ==
--- NOTE | 2023-05-02 16:56 | Mammography Report ---
BILATERAL DIGITAL SCREENING MAMMOGRAM 3D/2D WITH EXAGGERATED CC: 05/01/2023 CLINICAL: Routine screening. Personal history of left breast cancer. Comparison is made to exams dated: 12/29/2021 mammogram, 11/01/2020 mammogram, 10/27/2019 mammogram, and 08/28/2018 mammogram - [facility]. There are scattered areas of fibroglandular density in both breasts (category b / 25%-50% glandular t issue). There are benign post operative findings in the left breast. No significant masses, calcifications, or other findings are seen in either breast. There has been no significant interval change. IMPRESSION: BENIGN There is no mammographic evidence of malignancy. A 1 year screening mammogram is recommended. This exam was interpreted at Station ID: [id number]. NOTE: For mammograms, a report in lay terms will be sent to the patient. Approximately 15% of breast malignancies will not be visualized mammographically. In the management of a palpable breast mass, a negative mammogram must not discourage biopsy of a clinically suspicious lesion. Electronically Signed By: Avelino burns/candace:05/02/2023 14:42:08 letter sent: No_Letter ACR BI-RADS Category 2: Benign Finding(s) 3342F PARENCHYMAL PATTERN: (A) - The breast(s) demonstrate(s) scattered fibroglandular densities. BI-RADS CATEGORY: (2) - 2 Mammogram [id number] 1 year screening LATERALITY: (B)
== END 2023-05-01 10:24 | disposition home or self-care (01) ==
LOC: DI.S 10:23
PROVIDERS: ATTEND Physician Assistant
DX: Z12.31 Encounter for screening mammogram for malignant neoplasm of breast (principal); R92.323 Mammographic fibroglandular density, bilateral breasts; Z85.3 Personal history of malignant neoplasm of breast

== ENCOUNTER 2023-07-01 13:21 | Outpatient (CLI) | payer MEDICARE, OTHER ==
--- NOTE | 2023-07-01 16:09 | XRAY Report ---
PROCEDURE: Hand 3+V RT INDICATIONS: JOINT PAIN OF RIGHT HAND TECHNIQUE: 3 views of the hand(s) acquired. COMPARISON: None. FINDINGS: Bones: No fractures or dislocations. No suspicious bony lesions. Severe triscaphe joint osteoarthro sis. Mild interphalangeal joint space narrowing and spurring. Chondrocalcinosis Soft tissues: No suspicious soft tissue calcifications or masses. IMPRESSION: Severe triscaphe joint osteoarthrosis. Mild interphalangeal joint space narrowing and spurring. Chond rocalcinosis. No acute osseous normality. Reviewed by: Valerie Nye MD on 07/01/2023 4:08 PM PST Approved by: Valerie Nye MD on 07/01/2023 4:08 PM PST Station ID: [id number]
== END 2023-07-01 13:22 | disposition home or self-care (01) ==
LOC: DI.S 13:21
PROVIDERS: ATTEND Registered Nurse
DX: M19.041 Primary osteoarthritis, right hand (principal); M19.031 Primary osteoarthritis, right wrist; M11.241 Other chondrocalcinosis, right hand

== ENCOUNTER 2023-12-16 18:22 | Outpatient (CLI) | payer MEDICARE, OTHER ==
--- NOTE | 2023-12-18 15:42 | XRAY Report ---
PROCEDURE: Lumbar Spine 2-3V INDICATIONS: SCOLISOSIS DEFORMITY OF SPINE TECHNIQUE: 3 views of the lumbar spine were acquired. COMPARISON: Lumbar spine radiograph on February 15, 2023 FINDINGS: Surgical change: None. Bones: 5 [id number] vertebrae are present. Mild dextroconvex curvature of the lumbar spine cent ered at L2-L3 with Encarnacion angle of approximately 7.3 degrees from the superior endplate of L2 to the in ferior endplate of L4. [id number] multilevel degenerative changes with osteophytosis and disc h eight loss, worse at L3-L4. Multilevel facet arthropathy, worse at L4-5 and L5-S1. No vertebral body compression fractures. No suspicious bony lesions. Soft tissues: Overlying bowel gas pattern is normal. No suspicious soft tissue calcifications. IMPRESSION: 1.No acute fracture or traumatic subluxation. 2.Dextroconvex curvature with mild to moderate multilevel degenerative changes, similar to prior date d February 15, 2023. Reviewed by: Oh Sifuentes MD on 12/18/2023 3:41 PM PDT Approved by: Oh Sifuentes MD on 12/18/2023 3:41 PM PDT Station ID: [id number]
== END 2023-12-16 18:23 | disposition home or self-care (01) ==
LOC: DI.S 18:22
PROVIDERS: ATTEND Registered Nurse
DX: M47.816 Spondylosis without myelopathy or radiculopathy, lumbar region (principal); M47.817 Spondylosis without myelopathy or radiculopathy, lumbosacral region; M51.36 Other intervertebral disc degeneration, lumbar region; M41.54 Other secondary scoliosis, thoracic region

== ENCOUNTER 2024-01-07 08:00 | Outpatient (CLI) | payer MEDICARE, OTHER | END 2024-01-07 23:59 | disposition home or self-care (01) | LOC: LAB.S 08:00 | PROVIDERS: ATTEND Nurse Practitioner | DX: R30.0 Dysuria (principal) | CPT/HCPCS: 87086; 87181 ==

== ENCOUNTER 2024-01-25 11:49 | Outpatient (CLI) | payer MEDICARE, OTHER ==
[2024-01-25 12:20] LABS: CREATININE 0.8 mg/dL (0.6-1.3)
[2024-01-25] MEDS ORDERED: GADOTERATE MEGLUMINE 7.5 MMOL/15 ML VIAL ONE (12:39)
[2024-01-25] MEDS: GADOTERATE MEGLUMINE 7.5 MMOL/15 ML VIAL IVP ONE (14:14)
--- NOTE | 2024-01-27 17:38 | MRI Report ---
PROCEDURE: IAC'S W/WO INDICATIONS: DIZZINESS, REPEATED FALLS TECHNIQUE: Multiplanar multi sequential MRI images of the brain and skull base with and without intr avenous contrast were obtained. Thin section T2 weighted images through both internal auditory canals were also obtained. COMPARISON: None. FINDINGS: Internal auditory canals: Cisternal and intracanalicular segments of both 7th and 8th cranial nerve c omplexes are unremarkable. No abnormal enhancement. Inner ear structures are appropriately formed. CSF spaces: Ventricles are normal in size and shape. No extra-axial fluid collections. Basal ciste rns are patent. Brain: No intracranial bleeds or mass effects. Weller-white matter interface is intact. No abnormal intracranial enhancement. Diffusion weighted images demonstrate no acute infarct. Brainstem appears normal. Normal intravascular flow voids are present. Moderate atrophy and confluent white matter chronic ischemic change Skull and face: Calvarial marrow signal is normal. Orbits appear normal. Sinuses: Sinuses and mastoids are clear. IMPRESSION: Moderate atrophy and confluent white matter chronic ischemic change without acute infarct, hemorrhage or mass lesion. Unremarkable MRI of the internal auditory canals without evidence of acoustic schwannoma. Reviewed by: Stalin Fields MD on 01/27/2024 4:36 PM LINDA Approved by: Stalin Fields MD on 01/27/2024 4:36 PM AKVANESSA Station ID: [id number]
== END 2024-01-25 11:50 | disposition home or self-care (01) ==
LOC: LAB 11:49
PROVIDERS: ATTEND Psychiatry & Neurology Neurology
DX: R42 Dizziness and giddiness (principal); Z74.09 Other reduced mobility; R29.6 Repeated falls; Z85.3 Personal history of malignant neoplasm of breast; G31.89 Other specified degenerative diseases of nervous system
CPT/HCPCS: 36415; 82565